=== PATIENT | male | born 1970 | race Caucasian/White ===

== ENCOUNTER 2020-04-03 07:46 | Emergency (ER) | payer BC ==
[~2020-04-03] VITALS: Ht 175.3 cm; Wt 88.0 kg
[2020-04-03] MEDS ORDERED: PREDNISONE20 MG PO (12:02)
[2020-04-03] MEDS ORDERED: NORCO 5-325 TA1 EACH PO (12:03)
== END 2020-04-03 12:13 | disposition home or self-care (01) ==
LOC: ED 07:46
DX: M54.16 Radiculopathy, lumbar region (principal); E78.5 Hyperlipidemia, unspecified; I10 Essential (primary) hypertension
CPT/HCPCS: 74176; 76870; 81001; 96374; 96375; 99284-25; J1100; J1170; J1885

== ENCOUNTER 2025-03-06 06:32 | Day surgery (SDC) | payer BC ==
[~2025-03-06] VITALS: Ht 175.3 cm; Wt 90.9 kg
--- NOTE | ~2025-03-06 | OR ---
[facility] [address], [place] [address] Draft DATE OF OPERATION: 03/06/2025 SURGEON: Barbi Camarillo MD PREOPERATIVE DIAGNOSIS: History of polyps 2021. POSTOPERATIVE DIAGNOSIS: Sigmoid and left-sided diverticulitis, no evidence of recurrent or new polyps. PROCEDURE: Total colonoscopy to cecum. ANESTHESIA: Intravenous sedation, fentanyl 150 mcg and Versed 7 mg. 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 He was recommended at that time to have repeat in three years. He has no current symptoms of bleeding, diarrhea or constipation and has no family history of colon cancer. He is admitted at this time to undergo colonoscopy. He understands the risk of bleeding, infection, and perforation. FINDINGS: The prep was excellent. Complete colonoscopy was undertaken of the cecum with full intubation of the cecum. He had numerous diverticula of the sigmoid and left colon, but no evidence of abnormality otherwise. DESCRIPTION OF PROCEDURE: The patient was brought to the endoscopy suite and placed in lateral decubitus position, given intravenous sedation to the point of slurred speech and nystagmus. Digital rectal examination was normal. An Olympus video colonoscope was passed in the rectum and manipulated throughout the colon noting diverticula of the sigmoid and left colon. Scope was ultimately advanced to the cecum. The ileocecal valve and appendiceal orifice were normal. Scope was withdrawn from that point. Examination throughout showed no sign of abnormality into the left colon where diverticula were once again noted. Further withdrawal showed diverticula of the sigmoid and ultimately retroflexed in the rectum was undertaken showing no abnormality there either. The scope was straightened, withdrawn, and removed. The patient was taken to the recovery room in good condition. PATIENT NAME: SAMANTHA DECKER OPERATIVE REPORT DATE OF : 66 REPORT #: [id number] PHYSICIAN: BARBI CAMARILLO MD PCP: QUAN ROCKWELL PAC REPORT IS CONFIDENTIAL AND NOT TO BE RELEASED WITHOUT AUTHORIZATION [facility] [address], [place] [address] Draft CONCLUDING DIAGNOSIS: Diverticulosis of sigmoid and left colon. PLAN: Recommend repeat colonoscopy in 10 years, sooner if symptoms should develop. Recommend high-fiber diet as well. He will return to the ongoing care of PAUL Mendosa. MD SADAF Arrieta/MODL /[id number] cc: Quan Rockwell PA-C Copies: ~ PATIENT NAME: SAMANTHA DECKER OPERATIVE REPORT DATE OF : 66 REPORT #: [id number] PHYSICIAN: BARBI CAMARILLO MD PCP: QUAN ROCKWELL PAC REPORT IS CONFIDENTIAL AND NOT TO BE RELEASED WITHOUT AUTHORIZATION
[~2025-03-06 06:32] MED LIST: MIDAZOLAM HCL 5 MG/5 ML VIAL IV PRN; NORCO 5-325 TA1 EACH PO; PREDNISONE20 MG PO; fentaNYL citrate 100 MCG/2 ML VIAL IV PRN
[2025-03-06] MEDS ORDERED: LIPITOR40 MG PO (06:59)
[2025-03-06 07:00] VITALS: BP 134/93
[2025-03-06] MEDS ORDERED: IBLOOD GLUCOSE TEST STRIP 1 EA TEST VI PRN (07:00)
[2025-03-06] MEDS ORDERED: LIDOCAINE HCL 1% 5 ML SDV INJ ONE (07:00)
[2025-03-06] MEDS ORDERED: LACTATED RINGER'S 1,000 ML IV SCH (07:00)
[2025-03-06] MEDS ORDERED: fentaNYL citrate 100 MCG/2 ML VIAL ONE (08:34)
[2025-03-06] MEDS ORDERED: MIDAZOLAM HCL 5 MG/5 ML VIAL ONE (08:34)
[2025-03-06 09:46] VITALS: BP 144/99
--- NOTE | 2025-03-06 09:54 | NUR ---
03/06/25 0954 Karina Navarrete 0920 PT ARRIVED IN PACU WIDE AWAKE AND TALKING TO STAFF. ABD FIRM. ENCOURAGED TO PASS FLATUS. 0940 DR AT BEDSIDE. ALL QUESTIONS ANSWERED. 0950 SITTING UP IN BED SIPPING ON WATER. DC INSTRUCTIONS GIVEN.
== END 2025-03-06 10:07 | disposition home or self-care (01) ==
LOC: DS 06:32 → OPS 06:32 → DS 08:15 → OPS 08:15
PROVIDERS: ATTEND Surgery
PROC: 0DJD8ZZ Inspection of Lower Intestinal Tract, Via Natural or Artificial Opening Endoscopic (ICD-10-PCS; principal; 2025-03-06 08:15)
DX: Z12.11 Encounter for screening for malignant neoplasm of colon (principal); K57.30 Diverticulosis of large intestine without perforation or abscess without bleeding; Z86.0101 Personal history of adenomatous and serrated colon polyps; E78.5 Hyperlipidemia, unspecified; I10 Essential (primary) hypertension
CPT/HCPCS: 99153; G0500; J2250; J3010; J7121